=== PATIENT | male | born 1965 | race Caucasian/White ===

== ENCOUNTER → 2019-10-27 | Day surgery (SDC) | payer OTHER ==
[~2019-10-27] MED LIST: ACETAMINOPHEN 325 MG TABLET PO PRN; ALBUTEROL SULFATE 2.5 MG/3 ML NEBU. NEB PRN; ATROPINE 0.5 MG/5 ML DISP.SYRIN. IV PRN; IV RINGERS SOLUTION,LACTATED 1,000 ML IV SCH; ONDANSETRON PF 4 MG/2 ML VIAL. IV PRN; PHENOL ORAL SPRAY 177ML BOTTLE. MM PRN; PROPOFOL 40 ML IV ONE; diphenhydrAMINE 50 MG/ML VIAL IV PRN
[2019-10-27 13:30] VITALS: BP 102/92
--- NOTE | 2019-10-29 15:07 | PATHOLOGY ---
[facility] Accession Number: [id number] . 01 Material submitted: . stomach - GASTRIC BX . 01 Clinical history: . None provided . 02 Diagnosis: Gastric biopsies: - Chronic gastritis, mild, with minute focus of intestinal metaplasia. (JPM:[facility] 10/29/2019) [facility] 10/29/2019 0918 Local . 02 Comment: Sections of the gastric biopsy reveal multiple segments of gastric antral mucosa showing congestion and mild chronic inflammation. There is a minute focus of intestinal metaplasia. A properly controlled immunoperoxidase for Helicobacter is negative for Helicobacter organisms. . (JPM:[facility] 10/29/2019) . Special stain performed: Immunoperoxidase stain for Helicobacter . 02 Electronically signed: . Alfredito Vick MD, Pathologist NPI- [id number] . 01 Gross description: . The specimen is received in formalin, labeled "Erich Yoder, gastric biopsy". Received are three segments of pale mead soft tissue ranging in size from 0.2 to 0.4 cm in maximum dimensions. The specimen is submitted entirely in cassette A1. ([facility]; 10/28/2019) QA/QA 10/28/2019 1603 Local . 02 Pathologist provided ICD-10: K29.50 . 02 CPT . 176656, [id number] Specimen Comment: A courtesy copy of this report has been sent to [phone], [phone] Specimen Comment: [id number] Specimen Comment: Report sent to / DR SEALS Performed at: 01 [facility] [address], [place], [place] [id number] MD Nima Lee MD Phone: [phone] Performed at: 02 [facility] [address] [place], [place] [id number] MD Alfredito Vick MD Phone: [phone]
== END ==
LOC: SURG 11:00
PROVIDERS: ATTEND Emergency Medicine
DX: R10.13 Epigastric pain (principal); K29.50 Unspecified chronic gastritis without bleeding; K21.0 Gastro-esophageal reflux disease with esophagitis; K44.9 Diaphragmatic hernia without obstruction or gangrene; F32.9 Major depressive disorder, single episode, unspecified; Z72.89 Other problems related to lifestyle
CPT/HCPCS: 43239; 88305; 88342; J2704

== ENCOUNTER 2020-06-07 18:34 | Emergency (ER) | payer OTHER ==
[~2020-06-07] VITALS: Ht 180.3 cm; Wt 83.0 kg
[2020-06-07] MEDS ORDERED: METOCLOPRAMIDE HCL 10 MG/2 ML VIAL. IVP ONE (19:00)
[2020-06-07] MEDS ORDERED: KETOROLAC 30 MG/ML VIAL. IVP ONE (19:00)
[2020-06-07] MEDS ORDERED: diphenhydrAMINE 50 MG/ML VIAL IVP ONE (19:00)
[2020-06-07] MEDS ORDERED: IV NORMAL SALINE 1,000ML 1,000 ML IV ONE (19:00)
--- NOTE | 2020-06-07 19:14 | PHYS DOC ---
General Adult EDM: Chief Complaint: HEAD INJURY/TRAUMA HPI: HPI: 54-year-old male presents with head injury. 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 The bit caught on something and spun the unit around and threw the patient off of the platform he was standing on and then the machine spun around and hit him in the back of the head on the left side just posterior to the ear. Patient was dazed at least, he is not sure if he was knocked out. He just remembers getting up off of the ground. Since that time he has felt a little bit nauseous and just fatigued. He has not had any vomiting. The nausea has improved. He has a mild headache and a small hematoma in the area of injury. He went to an urgent care and had some lacerations treated on his forearms. They were superficial and there was no suturing. They did not have head CT capabilities and the patient wants to make sure he does not have a more significant head injury. He denies any other concerns at this time. Review of Systems: Review of Systems: Constitutional: Denies fever or chills Eyes: Denies change in visual acuity HENT: Denies nasal congestion or sore throat. Head injury left side Respiratory: Denies cough or shortness of breath Cardiovascular: Denies chest pain or edema GI: Denies abdominal pain, nausea, vomiting, bloody stools or diarrhea : Denies dysuria Musculoskeletal: Denies back pain or joint pain Integument: Denies rash Neurologic: Headache. Denies focal weakness or sensory changes Endocrine: Denies polyuria or polydipsia Lymphatic: Denies swollen glands Psychiatric: Denies depression or anxiety Heart Score: Risk Factors: Risk Factors: DM, Current or recent (<one month) smoker, HTN, HLP, family history of CAD, obesity. Risk Scores: Score 0 - 3: 2.5% MACE over next 6 weeks - Discharge Home Score 4 - 6: 20.3% MACE over next 6 weeks - Admit for Clinical Observation Score 7 - 10: 72.7% MACE over next 6 weeks - Early Invasive Strategies Current Medications: Current Meds: Current Medications Medications (Trade) Dose Ordered Sig/Alek Start Time Stop Time Status Last Admin Dose Admin Diphenhydramine HCl (Benadryl) 25 mg 1X ONCE 06/07/20 19:00 06/07/20 19:06 DC Ketorolac Tromethamine (Toradol 30mg Vial) 30 mg 1X ONCE 06/07/20 19:00 06/07/20 19:06 DC Metoclopramide HCl (Reglan Vial) 10 mg 1X ONCE 06/07/20 19:00 06/07/20 19:06 DC Sodium Chloride 1,000 ml @ 1,000 mls/hr 1X ONCE 06/07/20 19:00 06/07/20 19:59 Allergies: Allergies: Allergies Coded Allergies Type Severity Reaction Last Updated Verified No Known Drug Allergies 10/27/19 No Physical Exam: PE: Constitutional: Well developed, well nourished, no acute distress, non-toxic appearance. [] HENT: Normocephalic, mild tenderness posterior to the left ear, no crepitus or obvious deformity, bilateral external ears normal, bilateral tympanic membranes normal, oropharynx moist, no oral exudates, nose normal. [] Eyes: PERRLA, EOMI, conjunctiva normal, no discharge. [] Neck: Normal range of motion, no tenderness, supple, no stridor. [] Cardiovascular: Heart rate regular rhythm, no murmur [] Lungs & Thorax: Bilateral breath sounds clear to auscultation [] Abdomen: Bowel sounds normal, soft, no tenderness, no masses, no pulsatile masses. [] Skin: Clean dressings on the bilateral lower arms [] Back: No tenderness, no CVA tenderness. [] Extremities: No tenderness, no cyanosis, no clubbing, ROM intact, no edema. [] Neurologic: Alert and oriented X 3, normal motor function, normal sensory function, no focal deficits noted. [] Psychologic: Affect normal, judgement normal, mood normal. [] EKG: EKG: [] Radiology/Procedures: Radiology/Procedures: [] Impressions: CT head without contrast dated 06/07/2020. No comparison available. CLINICAL INDICATION: Pain after fall. TECHNIQUE: Contiguous axial imaging the head was performed from skull base to vertex. No contrast administered. One or more of the following individualized dose reduction techniques were utilized for this examination: 1. Automated exposure control 2. Adjustment of the mA and/or kV according to patient size 3. Use of iterative reconstruction technique. FINDINGS: Ventricles and sulci are within normal limits for age. No midline shift or mass effect. Brain parenchyma is of normal attenuation. No hemorrhage or extra axial collection. Posterior fossa and brainstem unremarkable. Mild to moderate mucosal thickening of the ethmoid air cells. The visualized paranasal sinuses and mastoid air cells are otherwise clear. No apparent calvarial abnormality. IMPRESSION: 1. No evidence of acute intracranial hemorrhage or mass. 2. Mild sinus disease. Electronically signed by: Geovani Holder MD (06/07/2020 7:22 PM) [facility] DICTATED AND SIGNED BY: GEOVANI HOLDER MD DATE: 06/07/201921 CC: VAIBHAV DOUGLAS DO; MARNI SEALS ~ Course & Med Decision Making: Course & Med Decision Making Pertinent Labs and Imaging studies reviewed. (See chart for details) The patient's labs are unremarkable. His head CT is negative for acute fi ndings. I believe he does has a concussion. He is stable for discharge at this time. [] Dragon Disclaimer: Dragon Disclaimer: This electronic medical record was generated, in whole or in part, using a voice recognition dictation system. Departure Departure: Impression: Primary Impression: Concussion Additional Impression: Closed head injury Disposition: 01 HOME/RESIDENCE PRIOR TO ADM Condition: STABLE Referrals: MARNI SEALS (PCP) Patient Instructions: Concussion and Brain Injury, [id number] VAIBHAV DOUGLAS DO Jun 07, 2020 19:14
--- NOTE | 2020-06-07 19:24 | RAD ---
CT head without contrast dated 06/07/2020. No comparison available. CLINICAL INDICATION: Pain after fall. TECHNIQUE: Contiguous axial imaging the head was performed from skull base to vertex. No contrast administered. One or more of the following individualized dose reduction techniques were utilized for this examination: 1. Automated exposure control 2. Adjustment of the mA and/or kV according to patient size 3. Use of iterative reconstruction technique. FINDINGS: Ventricles and sulci are within normal limits for age. No midline shift or mass effect. Brain parenchyma is of normal attenuation. No hemorrhage or extra axial collection. Posterior fossa and brainstem unremarkable. Mild to moderate mucosal thickening of the ethmoid air cells. The visualized paranasal sinuses and mastoid air cells are otherwise clear. No apparent calvarial abnormality. IMPRESSION: 1. No evidence of acute intracranial hemorrhage or mass. 2. Mild sinus disease. Electronically signed by: Geovani Holder MD (06/07/2020 7:22 PM) RAMY
[2020-06-07 19:44] LABS: BASO % 1 % (0-3); EOS % 1 % (0-3); HEMOGLOBIN 16.5 g/dL (13.0-17.5); LYMPH # 1.4 x10^3/uL (1.0-4.8); LYMPH % 16 % (24-48); MEAN CORPUSCULAR HEMOGLOBIN 30 pg (25-35); MEAN CORPUSCULAR HGB CONC 33 g/dL (31-37); MEAN CORPUSCULAR VOLUME 92 fL (79-100); MONO # 0.6 x10^3/uL (0.0-1.1); MONO % 7 % (0-9); NEUT # 6.3 x10^3uL (1.8-7.7); NEUT % 76 % (31-73); PLATELET COUNT 266 x10^3/uL (140-400); RED BLOOD COUNT 5.46 x10^6/uL (4.30-5.70); RED CELL DISTRIBUTION WIDTH 12.4 % (11.5-14.5); WHITE BLOOD COUNT 8.3 x10^3/uL (4.0-11.0)
[2020-06-07 19:53] LABS: CALCIUM 9.1 mg/dL (8.5-10.1); CREATININE 1.1 mg/dL (0.7-1.3); GFR 69.2; POTASSIUM 3.9 mmol/L (3.5-5.1)
[2020-06-07 20:00] LABS: ALBUMIN 3.9 g/dL (3.4-5.0); ALBUMIN/GLOBULIN RATIO 1.1 (1.0-1.7); TOTAL BILIRUBIN 0.8 mg/dL (0.2-1.0); TOTAL PROTEIN 7.4 g/dL (6.4-8.2)
[2020-06-07 20:40] VITALS: BP 152/89
[2020-06-07] MEDS ORDERED: ONDANSETRON PF 4 MG/2 ML VIAL. ONE (20:40)
== END 2020-06-07 20:40 | disposition home or self-care (01) ==
LOC: ER 18:34
DX: S06.0X9A Concussion with loss of consciousness of unspecified duration, initial encounter (principal); W22.8XXA Striking against or struck by other objects, initial encounter; Y93.89 Activity, other specified; Y92.89 Other specified places as the place of occurrence of the external cause; Y99.8 Other external cause status
CPT/HCPCS: 36415; 70450; 80053; 85025; 96361; 96374; 96375; 99285; J1200; J1885; J2765; J7030

== ENCOUNTER → 2020-06-21 | Outpatient (CLI) | payer OTHER ==
[2020-06-07 20:40] VITALS: BP 152/89
--- NOTE | 2020-06-21 14:23 | RAD ---
EXAM: HAND LEFT 3V 06/21/2020 9:45 AM CLINICAL INDICATION:Pain, injury COMPARISON:None TECHNIQUE: 3 views of the left hand FINDINGS:There is a fourth distal phalanx fracture with slight volar angulation at the base of the tuft and a tiny displaced tuft fragment. No other fracture or malalignment. Joint spaces are maintained. Bone mineralization is normal. IMPRESSION:Fourth distal phalanx fracture. Electronically signed by: Neetu Baumann MD (06/21/2020 2:20 PM) [id number]
== END ==
LOC: RAD 09:35
PROVIDERS: ATTEND Physician Assistant
DX: S62.635A Displaced fracture of distal phalanx of left ring finger, initial encounter for closed fracture (principal); X58.XXXA Exposure to other specified factors, initial encounter; Y93.89 Activity, other specified; Y92.89 Other specified places as the place of occurrence of the external cause; Y99.8 Other external cause status
CPT/HCPCS: 73130

== ENCOUNTER → 2021-12-11 | Outpatient (CLI) | payer OTHER ==
--- NOTE | 2021-12-11 15:52 | RAD ---
EXAM: XR LUMBAR SPINE 2-3V, XR CERVICAL SPINE 4-5V 12/11/2021 10:52 AM CLINICAL INDICATION: Disability determination COMPARISON: None TECHNIQUE: AP, right and left oblique, lateral, and odontoid views of the cervical spine. AP, latera l, and coned-down lateral views of the lumbar spine. FINDINGS: Cervical spine: The cervical spine is viewed through the mid C7 level on lateral view. No acute fract ure. Alignment is normal. There is mild disc space narrowing at C5-C6 and C6-C7 with small anterior o steophytes. There is uncovertebral joint proliferation at C5-C6 and C6-C7. Mild facet arthrosis. The dens is intact and symmetric and the ring of C1. Prevertebral soft tissues normal. Lumbar spine: There are 5 nonrib-bearing lumbar vertebral bodies. No acute fracture. Alignment is nor mal. Mild disc space narrowing at L4-L5. Tiny anterior osteophytes at L2-L3 through L4-L5. No signifi cant facet arthrosis. IMPRESSION: 1. Mild degenerative joint disease at C5-C6 and C6-C7. 2. Mild degenerative joint disease in the lumbar spine, greatest at L4-L5. Electronically signed by: Neetu Baumann MD (12/11/2021 3:50 PM) [id number]
== END ==
LOC: RAD 10:29
PROVIDERS: ATTEND Family Medicine
DX: Z02.71 Encounter for disability determination (principal); M47.816 Spondylosis without myelopathy or radiculopathy, lumbar region; M47.812 Spondylosis without myelopathy or radiculopathy, cervical region; M48.061 Spinal stenosis, lumbar region without neurogenic claudication; M48.02 Spinal stenosis, cervical region; M25.78 Osteophyte, vertebrae
CPT/HCPCS: 72050; 72100